=== PATIENT | female | born 1940 | race Caucasian/White ===

== ENCOUNTER → 2017-02-13 | Outpatient (CLI) | payer MEDICARE, BC ==
[~2017-02-13] MED LIST: ALIVE VITAMINS PO; ALLEGRA ALLERGY60 MG PO; ALLEGRA-D 24HR1 T24 PO; AMBIEN CR 12.12.5 MG PO; ASPIRIN 81M81 MG/TA2 PO; ASPIRIN E.C. 8181 MG PO; B-12 500 MCG PO; CALCIUM WITH VI1 TAB PO; CALCIUM1 CAP PO; CARDI-OMEGA1000 MG PO; CO Q-1010 M1 PO; CO Q-1010 MG PO; COLACE 100100 MG/CAP PO; DAZIDOX10 MG PO; DAZIDOX20 MG PO; DEXILANT60 MG PO; ELITE MAGNESIUM1 TAB PO; ENTOCORT EC3 MG PO; ESTRACE0.5 MG PO; ESTRADIOL PO; FEMARA PO; FISH OIL 1000MG1 CAP PO; GLUCOSAMINE & C1 CA1 PO; KLOR-CON M1010 MEQ PO; KLOR-CON M2020 MEQ PO; LASIX 40MG TABL40 MG PO; LIDODERM 5% PATC1 EA TP; LIDODERM PATCH TP; LUTEIN20 MG PO; MAGNESIUM ELEM300 MG PO; NAFTIN1% TP; NASACORT AQ N16.5 GM NS; NEURONTIN100 MG/CAP PO; NORCO 325 MG-101 TAB PO; NYSTATIN OR100 MU/ML PO; NYSTATIN TOP; OXYCONTIN 10MG10 MG PO; PREMARIN VAG42.5 GM VG; ROXICODONE 55 MG/TAB PO; SKELAXIN 800MG800 MG PO; ULTRAM ER100 MG PO; ULTRAM ER300 MG PO; VITAMIN D31000 IU PO; VITAMIND3 5000 PO; VOLTAREN GEL 1%1 TU TP; WELLBUTRIN 75MG75 MG PO; [UNRECOGNIZED DRUG - OTHER] PO
== END ==
LOC: MC.RAD 14:00
DX: Z85.3 Personal history of malignant neoplasm of breast (principal)

== ENCOUNTER → 2018-04-20 | Outpatient (CLI) | payer MEDICARE, BC | LOC: MC.RAD 15:00 | DX: Z12.31 Encounter for screening mammogram for malignant neoplasm of breast (principal); Z85.3 Personal history of malignant neoplasm of breast; Z98.890 Other specified postprocedural states ==

== ENCOUNTER → 2018-06-25 | Outpatient (CLI) | payer MEDICARE, BC | LOC: COL.RAD 12:45 | DX: M48.062 Spinal stenosis, lumbar region with neurogenic claudication (principal); M51.16 Intervertebral disc disorders with radiculopathy, lumbar region; M46.96 Unspecified inflammatory spondylopathy, lumbar region; Z87.81 Personal history of (healed) traumatic fracture ==

== ENCOUNTER → 2018-08-10 | Outpatient (CLI) | payer MEDICARE, BC | LOC: COL.RAD 10:30 | DX: S12.19 Other fracture of second cervical vertebra (principal); M47.812 Spondylosis without myelopathy or radiculopathy, cervical region; M48.02 Spinal stenosis, cervical region ==

== ENCOUNTER 2018-09-02 16:15 | Outpatient (RCR) | payer MEDICARE, BC | END 2018-10-05 11:58 | disposition home or self-care (01) | LOC: WSPT 16:15 | DX: M51.36 Other intervertebral disc degeneration, lumbar region (principal); M48.062 Spinal stenosis, lumbar region with neurogenic claudication; M25.552 Pain in left hip; M79.652 Pain in left thigh; G89.29 Other chronic pain ==

== ENCOUNTER 2020-01-07 10:08 | Day surgery (SDC) | payer MEDICARE, BC ==
[~2020-01-07] VITALS: Ht 152.4 cm; Wt 59.2 kg
[2020-01-07] MEDS ORDERED: SKELAXIN 800MG800 MG PO (10:36)
[2020-01-07] MEDS ORDERED: NEURONTIN100 MG/CAP PO (10:36)
[2020-01-07] MEDS ORDERED: DAZIDOX10 MG PO (10:36)
[2020-01-07] MEDS ORDERED: ULTRAM ER300 MG PO (10:37)
[2020-01-07] MEDS ORDERED: ALLEGRA ALLERGY60 MG PO (10:37)
[2020-01-07] MEDS ORDERED: LASIX 40MG TABL40 MG PO (10:37)
[2020-01-07] MEDS ORDERED: K-DUR20 MEQ PO (10:38)
[2020-01-07] MEDS ORDERED: COZAAR 50MG50 MG/TAB PO (10:38)
[2020-01-07] MEDS ORDERED: TAMOXIFEN CITRA20 MG PO (10:38)
[2020-01-07] MEDS ORDERED: HCTZ12.5TAB PO (10:38)
[2020-01-07] MEDS ORDERED: [UNRECOGNIZED DRUG - CODE] PO (10:39)
[2020-01-07] MEDS ORDERED: SALONPAS1 EACH TP (10:40)
[2020-01-07] MEDS ORDERED: ENTOCORT EC3 MG PO (10:40)
[2020-01-07] MEDS ORDERED: [UNRECOGNIZED DRUG - OTHER] (10:40)
[2020-01-07] MEDS ORDERED: ZOVIRAX400 MG PO (10:41)
[2020-01-07] MEDS ORDERED: CALCIUM 600MG+D1 TAB PO (10:41)
[2020-01-07] MEDS ORDERED: MULTI VITAMINS1 TAB PO (10:42)
[2020-01-07] MEDS ORDERED: VITAMIN B COMPL1 SGL PO (10:42)
[2020-01-07] MEDS ORDERED: B COMPLEX & B121 TAB PO (10:43)
[2020-01-07] MEDS ORDERED: THE MEDICINE S200 M2 PO (10:44)
[2020-01-07] MEDS ORDERED: OMEGA-3 1000 MG1 CAP PO (10:44)
[2020-01-07] MEDS ORDERED: ASPIRIN 81M81 MG/TA2 PO (10:45)
[2020-01-07] MEDS ORDERED: D3-5050000 IU PO (10:45)
[2020-01-07] MEDS ORDERED: MAGNESIUM250 M1 PO (10:46)
[2020-01-07] MEDS ORDERED: NATURE'S BLE1000 MCG PO (10:46)
[2020-01-07 10:47] VITALS: BP 133/66; PULSE 77; TEMP 97.7
[2020-01-07 11:35] VITALS: BP 123/50; PULSE 68; TEMP 98.3
--- NOTE | 2020-01-07 11:35 | NUR ---
The patient arrived back to [facility] from [facility] at this time. The patient appears alert and oriented and ambulated from the cart to the recliner in the room with the stand by assistance of two nurses and appeared to tolerate the activity well. Post operative vital signs were started at this time. The patient's is at her bedside at this time. Call light is within reach. The patient requests to try some orange juice and water at this time. Will continue to monitor the patient.
[2020-01-07 11:50] VITALS: BP 128/57; PULSE 62
--- NOTE | 2020-01-07 11:50 | NUR ---
The patient has finished her orange juice and appeared to tolerate it well. The patient still has her water and is sipping on it. The patient's remains at her bedside. Will continue to monitor the patient.
[2020-01-07 12:10] VITALS: BP 119/54; PULSE 67
--- NOTE | 2020-01-07 12:15 | NUR ---
Dr. Rodney has been at the patient's bedside to speak with her and her at this regarding the findings of the procedure. Discharge instrucitons were reviewed with the patient and her at this time. They both verbalized understanding and have no questions for the nurse at this time. The patient's IV to her right anecubital was removed and a pressure dressing was applied to the site. The nurse instructed the patient to get dressed and notify the staff when she is ready to be escorted out.
--- NOTE | 2020-01-07 12:31 | NUR ---
The patient was escorted out via wheelchair to a private vehicle by EDUARDO Lechuga. The patient's belongings and discharge paperwork were sent with her. The patient's is present to drive her home.
== END 2020-01-07 12:31 | disposition home or self-care (01) ==
LOC: SDCO 10:08
DX: K52.89 Other specified noninfective gastroenteritis and colitis (principal); K21.9 Gastro-esophageal reflux disease without esophagitis; E78.00 Pure hypercholesterolemia, unspecified; I10 Essential (primary) hypertension; M81.0 Age-related osteoporosis without current pathological fracture; E66.9 Obesity, unspecified; G89.29 Other chronic pain; M06.9 Rheumatoid arthritis, unspecified; F41.9 Anxiety disorder, unspecified; Z88.8 Allergy status to other drugs, medicaments and biological substances; Z88.6 Allergy status to analgesic agent; Z79.82 Long term (current) use of aspirin; Z83.71 Family history of colonic polyps; Z90.710 Acquired absence of both cervix and uterus; Z20.828 Contact with and (suspected) exposure to other viral communicable diseases; Z85.3 Personal history of malignant neoplasm of breast; Z88.1 Allergy status to other antibiotic agents
CPT/HCPCS: J2704; J7030

== ENCOUNTER → 2020-09-07 | Outpatient (CLI) | payer MEDICARE, BC ==
[~2020-09-07] MED LIST changes: +B COMPLEX & B121 TAB PO; +CALCIUM 600MG+D1 TAB PO; +COZAAR 50MG50 MG/TAB PO; +D3-5050000 IU PO; +HCTZ12.5TAB PO; +K-DUR20 MEQ PO; +MAGNESIUM250 M1 PO; +MULTI VITAMINS1 TAB PO; +NATURE'S BLE1000 MCG PO; +OMEGA-3 1000 MG1 CAP PO; +SALONPAS1 EACH TP; +TAMOXIFEN CITRA20 MG PO; +THE MEDICINE S200 M2 PO; +VITAMIN B COMPL1 SGL PO; +ZOVIRAX400 MG PO; +[UNRECOGNIZED DRUG - CODE] PO; +[UNRECOGNIZED DRUG - OTHER]
== END ==
LOC: MC.RAD 14:15
DX: Z12.31 Encounter for screening mammogram for malignant neoplasm of breast (principal)

== ENCOUNTER → 2021-01-30 | Outpatient (CLI) | payer MEDICARE, BC | LOC: COL.RAD 11:24 | DX: R06.02 Shortness of breath (principal); K44.9 Diaphragmatic hernia without obstruction or gangrene; K57.30 Diverticulosis of large intestine without perforation or abscess without bleeding; Z90.49 Acquired absence of other specified parts of digestive tract | CPT/HCPCS: Q9967 ==

== ENCOUNTER → 2021-01-31 | Outpatient (CLI) | payer MEDICARE, BC | LOC: COL.VAS 12:30 | DX: R06.02 Shortness of breath (principal) ==

== ENCOUNTER 2021-06-28 18:39 | Emergency (ER) | payer MEDICARE, BC ==
[~2021-06-28] VITALS: Ht 152.4 cm; Wt 59.1 kg
[2021-06-28 18:42] VITALS: TEMP 97.7
[2021-06-28 19:13] LABS: BASO # 0.1 K/mm3 (0.0-0.2); BASO % 0.6 % (0.0-2.0); EOS # 0.2 K/mm3 (0.0-0.7); EOS % 2.3 % (0.0-4.0); GRAN % 64.7 % (42.2-75.2); HEMOGLOBIN 10.9 g/dl (12.5-16.0); LYMPH # 1.6 K/mm3 (1.2-3.4); LYMPH % 17.6 % (20.0-51.0); MEAN CELL VOLUME 93 fl (80.0-100.0); MEAN CORPUSCULAR HEMOGLOBIN 31 pg (27-31); MEAN CORPUSCULAR HGB CONC 33 g/dl (33.0-37.0); MEAN PLATELET VOLUME 10.6 fl (7.4-10.4); MONO # 1.3 K/mm3 (0.1-0.6); MONO % 14.3 % (1.7-9.3); PLATELET COUNT 234 K/mm3 (130-400); REDCELL DISTRIBUTION WIDTH-CV 14.6 % (11.5-14.5)
[2021-06-28 19:16] LABS: HEMATOCRIT 32.7 % (37.0-47.0)
[2021-06-28 19:28] LABS: ALBUMIN 3.1 gm/dL (3.4-4.8); BILIRUBIN,TOTAL 0.4 mg/dL (0.2-1.2); C-REACTIVE PROTEIN 0.56 mg/dL (0.00-0.50); CALCIUM 8.9 mg/dL (8.4-10.2); CREATININE, serum 0.83 mg/dL (0.57-1.11); POTASSIUM 3.7 mmol/L (3.5-4.5); TOTAL PROTEIN 5.9 gm/dL (6.2-8.1)
[2021-06-28 19:34] LABS: TROPONIN-I 0.02 ng/mL (0.00-0.033)
[2021-06-28 19:44] LABS: COLLECTION METHOD CLEAN CATCH
[2021-06-28 19:53] LABS: MUCOUS Present (NOT PRESENT); PH 6 (5-8); URINE APPEARANCE Clear (CLEAR/HAZY); URINE BACTERIA Rare (NONE SEEN); URINE BILIRUBIN Negative (NEGATIVE); URINE BLOOD Negative (NEGATIVE); URINE COLOR Yellow (YELLOW); URINE GLUCOSE Negative (NEGATIVE); URINE KETONE Negative (NEGATIVE); URINE LEUKOCYTE ESTERASE Negative (NEGATIVE); URINE NITRATE Negative (NEGATIVE); URINE PROTEIN(semi-quant) Negative (NEGATIVE); URINE RBC 0-2 /hpf (0-2); URINE UROBILINOGEN Negative (NEGATIVE)
[2021-06-28 23:40] VITALS: BP 118/48; PULSE 69
== END 2021-06-28 23:40 | disposition home or self-care (01) ==
LOC: COL.ER 18:39
PROVIDERS: Physician Assistant
DX: R53.1 Weakness (principal); F32.A Depression, unspecified; M79.7 Fibromyalgia; R26.2 Difficulty in walking, not elsewhere classified; Z79.891 Long term (current) use of opiate analgesic
CPT/HCPCS: J7030

== ENCOUNTER 2021-07-04 10:35 | Emergency (ER) | payer MEDICARE, BC ==
[2021-07-04 11:33] LABS: BASO # 0.1 K/mm3 (0.0-0.2); BASO % 0.7 % (0.0-2.0); EOS # 0.1 K/mm3 (0.0-0.7); EOS % 0.7 % (0.0-4.0); GRAN # 8.2 K/mm3 (1.4-6.5); GRAN % 70.4 % (42.2-75.2); HEMATOCRIT 31.5 % (37.0-47.0); HEMOGLOBIN 11.2 g/dl (12.5-16.0); LYMPH # 1.8 K/mm3 (1.2-3.4); LYMPH % 15.2 % (20.0-51.0); MEAN CELL VOLUME 88 fl (80.0-100.0); MEAN CORPUSCULAR HEMOGLOBIN 31 pg (27-31); MEAN CORPUSCULAR HGB CONC 36 g/dl (33.0-37.0); MEAN PLATELET VOLUME 10.5 fl (7.4-10.4); MONO # 1.4 K/mm3 (0.1-0.6); MONO % 12.1 % (1.7-9.3); PLATELET COUNT 310 K/mm3 (130-400); REDCELL DISTRIBUTION WIDTH-CV 15.7 % (11.5-14.5)
[2021-07-04 11:36] LABS: INR 1.2 (0.8-3.0); PROTHROMBIN TIME 13.8 SECONDS (9.7-12.8)
[2021-07-04 11:39] LABS: PARTIAL THROMBOPLASTIN TIME 25.5 SECONDS (26.0-37.0)
[2021-07-04 11:43] LABS: COLLECTION METHOD CLEAN CATCH
[2021-07-04 12:01] LABS: MUCOUS Present (NOT PRESENT); PH 5 (5-8); SQUAMOUS EPITHELIAL 0-2 /hpf (0-10); URINE APPEARANCE Clear (CLEAR/HAZY); URINE BACTERIA Rare /hpf (NONE SEEN); URINE BILIRUBIN Negative (NEGATIVE); URINE BLOOD Negative (NEGATIVE); URINE COLOR Yellow (YELLOW); URINE GLUCOSE Negative (NEGATIVE); URINE KETONE Negative (NEGATIVE); URINE LEUKOCYTE ESTERASE Negative (NEGATIVE); URINE NITRATE Negative (NEGATIVE); URINE PROTEIN(semi-quant) Negative (NEGATIVE); URINE RBC 0-2 /hpf (0-2); URINE UROBILINOGEN Negative (NEGATIVE)
[2021-07-04] MEDS ORDERED: CENTANY AT2% TP (12:06)
[2021-07-04 12:10] LABS: ALANINE AMINOTRANSFERASE 16 U/L (0-55); ALBUMIN 3.2 gm/dL (3.4-4.8); ALKALINE PHOSPHATASE 44 U/L (40-150); ANION GAP 11 mmol/L (7-16); AST,SGOT 21 U/L (5-34); BLOOD UREA NITROGEN 25 mg/dL (10-20); CALCIUM 8.6 mg/dL (8.4-10.2); CARBON DIOXIDE 29 mmol/L (23-31); CHLORIDE 95 mmol/L (98-107); CREATININE, serum 1.02 mg/dL (0.57-1.11); GLUCOSE 111 mg/dL (70-99); POTASSIUM 3.2 mmol/L (3.5-4.5); SODIUM 135 mmol/L (136-145); TOTAL PROTEIN 6.2 gm/dL (6.2-8.1)
[2021-07-04 12:25] LABS: TROPONIN-I < 0.010 ng/mL (0.00-0.033)
[2021-07-04 13:12] VITALS: BP 118/53; PULSE 78
--- NOTE | 2021-07-04 13:50 | NUR ---
Initial visit; Hotel Service Manager called to Emergency Services to visit with and pray with family of Mitzy Lima who had been brought into the Emergency Department. Hotel Service Manager listened and prayed with Mitzy Lima's daughter and and later joined Mitzy Lima for prayer for a safe trip to [place] and their awareness of God's presence.
== END 2021-07-04 13:10 | disposition short-term general hospital (02) ==
LOC: COL.ER 10:35
PROVIDERS: Emergency Medicine
DX: G93.89 Other specified disorders of brain (principal); M79.7 Fibromyalgia; G89.29 Other chronic pain; Z85.3 Personal history of malignant neoplasm of breast; Z79.891 Long term (current) use of opiate analgesic
CPT/HCPCS: J2405; J7030; Q9967

== ENCOUNTER → 2022-01-10 | Outpatient (RCR) | payer MEDICARE, BC ==
[~2022-01-10] MED LIST changes: +CENTANY AT2% TP
== END | disposition still patient (30) ==
LOC: WSPT
DX: C83.39 Diffuse large B-cell lymphoma, extranodal and solid organ sites (principal); R29.6 Repeated falls; Z85.3 Personal history of malignant neoplasm of breast

== ENCOUNTER 2022-02-06 13:30 | Outpatient (RCR) | payer MEDICARE, BC | END 2022-02-10 | disposition home or self-care (01) | LOC: WSPT | DX: C83.39 Diffuse large B-cell lymphoma, extranodal and solid organ sites (principal); R29.6 Repeated falls ==

== ENCOUNTER 2023-03-03 15:00 | Outpatient (RCR) | payer MEDICARE, BC | END 2023-03-13 | disposition home or self-care (01) | LOC: WSPT | DX: R26.81 Unsteadiness on feet (principal) ==

== ENCOUNTER → 2023-08-13 | Outpatient (CLI) | payer MEDICARE | LOC: MC.RAD 11:00 | DX: Z12.31 Encounter for screening mammogram for malignant neoplasm of breast (principal) ==

== ENCOUNTER 2024-03-25 15:26 | Emergency (ER) | payer MEDICARE, BC ==
[~2024-03-25] VITALS: Ht 157.5 cm; Wt 56.8 kg
[2024-03-25 15:28] VITALS: TEMP 97.7
[2024-03-25 16:01] LABS: BASO # 0.1 K/mm3 (0.0-0.2); BASO % 1.3 % (0.0-2.0); EOS # 0.3 K/mm3 (0.0-0.7); EOS % 4.3 % (0.0-4.0); GRAN # 4.5 K/mm3 (1.4-6.5); GRAN % 67.9 % (42.2-75.2); HEMATOCRIT 38.4 % (37.0-47.0); HEMOGLOBIN 12.4 g/dl (12.5-16.0); LYMPH # 1.2 K/mm3 (1.2-3.4); LYMPH % 18.2 % (20.0-51.0); MEAN CELL VOLUME 95 fl (80.0-100.0); MEAN CORPUSCULAR HEMOGLOBIN 31 pg (27-31); MEAN CORPUSCULAR HGB CONC 32 g/dl (33.0-37.0); MEAN PLATELET VOLUME 11.3 fl (7.4-10.4); MONO # 0.5 K/mm3 (0.1-0.6); MONO % 7.6 % (1.7-9.3); RED BLOOD COUNT 4.05 M/mm3 (4.10-5.30); REDCELL DISTRIBUTION WIDTH-CV 14.6 % (11.5-14.5)
[2024-03-25 16:12] LABS: ALBUMIN 3.3 g/dL (3.4-4.8); BILIRUBIN,TOTAL 0.6 mg/dL (0.2-1.2); CALCIUM 9.5 mg/dL (8.4-10.2); CREATININE, serum 1.15 mg/dL (0.57-1.11); POTASSIUM 3.4 mEq/L (3.5-4.5); TOTAL PROTEIN 6.9 g/dl (6.2-8.1)
[2024-03-25 16:19] LABS: TROPONIN-I 0.02 ng/mL (0.00-0.033)
[2024-03-25 16:44] LABS: PLATELET COUNT 258 K/mm3 (130-400)
[2024-03-25 17:06] LABS: THYROID STIMULATING HORMONE 1.251 uIU/mL (0.350-4.940)
[2024-03-25] MEDS ORDERED: Iohexol 300 - 100 ML VIAL IV ONE (17:18)
[2024-03-25] MEDS ORDERED: NS 100 ML IV SCH (17:19)
[2024-03-25 18:08] LABS: COLLECTION METHOD CATHETER
[2024-03-25] MEDS ORDERED: dexAMETHasone 10 MG/ML VIAL IV ONE (18:15)
[2024-03-25] MEDS ORDERED: levETIRAcetam 1,000 MG in Syringe 1 EACH IV ONE (18:15)
[2024-03-25 18:18] LABS: URINE APPEARANCE CLEAR (CLEAR/HAZY); URINE BLOOD NEGATIVE (NEGATIVE); URINE COLOR YELLOW (YELLOW); URINE GLUCOSE NEGATIVE (NEGATIVE); URINE KETONE NEGATIVE (NEGATIVE); URINE NITRATE NEGATIVE (NEGATIVE); URINE PROTEIN(semi-quant) TRACE (NEGATIVE); URINE UROBILINOGEN 0.2 E.U/dL (0.2-1.0)
[2024-03-26 00:20] VITALS: BP 117/62; PULSE 64
== END 2024-03-26 00:20 | disposition short-term general hospital (02) ==
LOC: COL.ER 15:26
PROVIDERS: Emergency Medicine
DX: C71.9 Malignant neoplasm of brain, unspecified (principal)
CPT/HCPCS: J1100; J1953; Q9967